=== PATIENT | female | born 1980 | race Caucasian/White ===

== ENCOUNTER 2017-03-08 10:45 | Outpatient (RCR) | payer MEDICARE, MEDICAID | END 2017-03-23 | LOC: M PT 10:45 | PROVIDERS: ATTEND Family Medicine Addiction Medicine | DX: Z51.89 Encounter for other specified aftercare (principal); M25.561 Pain in right knee | CPT/HCPCS: 97110; 97161; G8978; G8979 ==

== ENCOUNTER 2017-04-21 12:39 | Outpatient (RCR) | payer MEDICARE, MEDICAID | END 2017-04-22 | LOC: M PT 12:39 | PROVIDERS: ATTEND Family Medicine Addiction Medicine | DX: Z51.89 Encounter for other specified aftercare (principal); M25.561 Pain in right knee ==

== ENCOUNTER 2017-04-26 13:52 | Outpatient (RCR) | payer MEDICARE, MEDICAID | END 2017-05-23 | LOC: M PT 13:52 | DX: Z51.89 Encounter for other specified aftercare (principal); M25.561 Pain in right knee | CPT/HCPCS: 97110 ==

== ENCOUNTER → 2017-08-06 | Outpatient (REF) | payer MEDICARE, MEDICAID ==
[2017-08-06 18:13] LABS: ALBUMIN 3.3 GM/DL (3.2-5.2); ALKALINE PHOSPHATASE 136 U/L (45-117); ALT/SGPT 18 U/L (12-78); ANION GAP 10 MEQ/L (8-16); AST/SGOT 13 U/L (7-37); BILIRUBIN,TOTAL 0.7 MG/DL (0.2-1.0); BLOOD UREA NITROGEN 7 MG/DL (7-18); CALCIUM LEVEL 8.7 MG/DL (8.5-10.1); CARBON DIOXIDE LEVEL 25 MEQ/L (21-32); CHLORIDE LEVEL 110 MEQ/L (98-107); CHOLESTEROL LEVEL 129 MG/DL (<200); CHOLESTEROL RISK RATIO 3.794 (<5); CREATININE FOR GFR 0.66 MG/DL (0.55-1.30); GLOMERULAR FILTRATION RATE > 60.0 (>60); GLUCOSE, FASTING 95 MG/DL (70-100); HDL CHOLESTEROL 34 MG/DL (>40); NON-HDL-C 95 MG/DL; POTASSIUM SERUM 4.6 MEQ/L (3.5-5.1); SODIUM LEVEL 145 MEQ/L (136-145); TOTAL PROTEIN 7.4 GM/DL (6.4-8.2); TRIGLYCERIDES LEVEL 80 MG/DL (<150)
[2017-08-06 18:16] LABS: BASO % 0.5 % (0.0-1.0); EOS # 0.1 10^3/uL (0.0-0.50); EOS % 2.1 % (0.0-3.0); HEMATOCRIT 40.5 % (36.0-47.0); HEMOGLOBIN 13.2 g/dl (12.0-16.0); IMMATURE GRANULOCYTE % 0.2 % (0-3.0); LYMPH # 1.8 10^3/uL (1.5-4.5); LYMPH % 31.5 % (24.0-44.0); MEAN CORPUSCULAR HEMOGLOBIN 29.5 pg (27.0-33.0); MEAN CORPUSCULAR HGB CONC 32.6 g/dl (32.0-36.5); MEAN CORPUSCULAR VOLUME 90.6 fl (80.0-96.0); MONO # 0.4 10^3/uL (0.0-0.8); MONO % 7.9 % (0.0-5.0); NEUTROPHILS # 3.2 10^3/uL (1.8-7.7); NEUTROPHILS % 57.8 % (36.0-66.0); PLATELET COUNT, AUTOMATED 346 10^3/uL (150-450); RED BLOOD COUNT 4.47 10^6/uL (4.00-5.40); RED CELL DISTRIBUTION WIDTH 13.1 % (11.5-14.5); WHITE BLOOD COUNT 5.6 10^3/uL (4.0-10.0)
== END ==
LOC: M LAB REF 16:55
DX: Z00.01 Encounter for general adult medical examination with abnormal findings (principal)
CPT/HCPCS: 84443

== ENCOUNTER → 2017-09-14 | Outpatient (REF) | payer MEDICARE, MEDICAID ==
[2017-09-16 14:13] LABS: HPV HYBRID CAPTURE II Negative (Negative)
== END ==
LOC: M LAB REF 18:02
DX: Z12.4 Encounter for screening for malignant neoplasm of cervix (principal)
CPT/HCPCS: G0123

== ENCOUNTER → 2017-09-16 | Outpatient (CLI) | payer MEDICARE, MEDICAID ==
[2017-09-16 17:23] LABS: APPEARANCE, URINE CLEAR (CLEAR); BACTERIA, URINE AUTO NEGATIVE (NEGATIVE); BILIRUBIN, URINE AUTO NEGATIVE (NEGATIVE); BLOOD, URINE BLOOD NEGATIVE (NEGATIVE); COLOR, URINE YELLOW (YELLOW); GLUCOSE, URINE (UA) AUTO NEGATIVE (NEGATIVE); KETONE, URINE AUTO NEGATIVE (NEGATIVE); LEUKOCYTE ESTERASE, URINE AUTO NEGATIVE (NEGATIVE); MUCUS, URINE SMALL (NEGATIVE); NITRITE, URINE AUTO NEGATIVE (NEGATIVE); PROTEIN, URINE AUTO NEGATIVE (NEGATIVE); RBC, URINE AUTO 2 /HPF (0-3); SPECIFIC GRAVITY URINE AUTO 1.012 (1.002-1.035); SQUAMOUS EPITHELIAL CELL UR AU 0 /HPF (0-6); UROBILINOGEN, URINE AUTO 0.2 mg/dL (0.0-2.0); WBC, URINE AUTO 0 /HPF (0-3)
== END ==
LOC: M LAB 16:24
DX: R10.31 Right lower quadrant pain (principal)
CPT/HCPCS: 74018

== ENCOUNTER → 2017-09-24 | Outpatient (REF) | payer MEDICARE, MEDICAID ==
[2017-09-24 13:14] LABS: APPEARANCE, URINE MANUAL CLEAR (CLEAR); COLOR, URINE MANUAL YELLOW (YELLOW)
[2017-09-24 13:15] LABS: BILIRUBIN, URINE MANUAL NEGATIVE (NEGATIVE); BLOOD URINE MANUAL NEGATIVE (NEGATIVE); GLUCOSE, URINE (UA) MANUAL NEGATIVE (NEGATIVE); KETONE, URINE MANUAL NEGATIVE (NEGATIVE); LEUKOCYTE ESTERASE, URINE MAN NEGATIVE (NEGATIVE); MICROSCOPIC INDICATED? MAN NO (NO); NITRITE, URINE MANUAL NEGATIVE (NEGATIVE); PROTEIN, URINE MANUAL NEGATIVE (NEGATIVE); SPECIFIC GRAVITY,URINE MANUAL 1.025 (1.002-1.035); UROBILINOGEN, URINE MANUAL NORMAL (NORMAL)
== END ==
LOC: M LAB REF 11:57
DX: R31.29 Other microscopic hematuria (principal)
CPT/HCPCS: 81002

== ENCOUNTER → 2018-11-30 | Outpatient (REF) ==
--- NOTE | 2018-11-30 15:06 | REP ---
RIGHT KNEE SERIES: Five views. HISTORY: Degenerative disc disease. FINDINGS: Five views right knee demonstrate mild lateral patellar spurring on the sunrise view. Bones, joints, and soft tissues are otherwise unremarkable. IMPRESSION: Mild patellar spurring laterally on the sunrise view. Otherwise negative. Electronically Signed by Gary Peter MD 11/30/2018 04:38 P
== END ==
LOC: M SMT 14:31
PROVIDERS: ATTEND Internal Medicine
DX: Z02.71 Encounter for disability determination (principal)